=== PATIENT | female | born 1990 | race Caucasian/White ===

== ENCOUNTER 2016-05-01 12:49 | Emergency (ER) | payer OTHER ==
[2016-05-01 13:23] VITALS: BP 127/73
--- NOTE | 2016-05-01 14:18 | ERNOTE ---
Abdominal HPI - Narrative Date of Service: 05/01/16 - General Chief Complaint: Abdominal Pain Time Seen by Provider: 05/01/16 14:01 Source: patient Exam Limitations: no limitations - Immun/Allergies/Home Medications Immunizatons: IMMUNIZATION HX Immunizations Up to Date Yes History of Influenza Vaccine No Hx Pneumococcal Vaccination No Allergies/Adverse Reactions: Allergies acetaminophen Adverse Reaction (Intermediate, Verified 05/01/16 13:24) Home Medications: HOME MEDICATIONS #103/Iron Fumarate/FA [ Tablet] 1 each PO DAILY [Last Taken Unknown] - History of Present Illness Narrative: Pt. comes in with c/o suprapubic pain, vaginal bleeding, and vaginal discharge after falling down her stairs last night. Pt. denies any other symptoms or pain at this time. Pt. is 14 weeks and is RH negative. Review of Systems - Review of Systems Constitutional: Present: no symptoms reported. Absent: recent illness, fever, chills, fatigue, malaise EYE: Present: no symptoms reported ENT: Present: no symptoms reported Respiratory: Present: no symptoms reported. Absent: shortness of breath, cough , wheezing Cardiology: Present: no symptoms reported. Absent: chest pain, palpitations, edema Gastrointestinal/Abdominal: Present: abdominal pain. Absent: nausea, vomiting, diarrhea Genitourinary: Present: pain - suprapubic, discharge - blod Musculoskeletal: Present: no symptoms reported. Absent: back pain, joint pain Skin: Present: no symptoms reported Neurological: Present: no symptoms reported. Absent: headache, dizziness/light- headedness, numbness, tingling All Other Systems: All systems neg except as marked - Patient's Past Medical History Patient History - Medical: No pertinent hx Patient History - Cancer: No Hx of Cancer Patient History - Surgical Procedures: No surgical history - Social History Living Situations: spouse Alcohol Use: none Drug Use: none Physical Exam - Physical Exam General Appearance: Present: wd/wn, alert, no apparent distress Eye Exam: Normal inspection: bilateral, PERRL: bilateral, EOMI: bilateral Respiratory: Present: no respiratory distress, normal breath sounds, no accessory muscle use, chest nontender, lungs clear Cardiovascular/Chest: Present: regular rate, rhythm, no murmur, normal peripheral pulses Gastrointestinal/Abdominal: Present: normal bowel sounds, nontender, nondistended, soft, no organomegaly Back Exam: Present: normal inspection, normal range of motion, no CVA tenderness , no vertebral tenderness Extremity Exam: Present: normal inspection, non-tender, no edema, normal range of motion Neurological Exam: Present: alert, oriented, normal mood/affect, no motor/ sensory deficits, 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 Absent: pallor, skin rash Pelvic Exam: Present: active bleeding - spotting with pink drainage ED Progress - Date and Time Seen: Date and Time: 05/01/16 15:[address] Elizabeth and will send pt. home with abruptio precautions. 05/01/16 15:39 Pt. not in room when I went to speak with her. Pt. did not get rhogam. If pt. shows back up she will need rhogam injection and to receive her instructions. - Results and Orders Patient's Lab Results:: I have reviewed the patient's lab results. - Vital Signs Patient's Vital Signs:: I have reviewed the patient's vital signs. Vital Signs: Vital Signs 05/01/16 13:19 Temperature 35.4 C L Pulse Rate 77 Respiratory 18 Rate Blood Pressure 127/73 O2 Sat by Pulse 100 Oximetry - CT/Ultrasound CT/Ultrasound Narrative: US negative for any abruption or previa. Viable active fetus HR 161 - Progress/Reassessment Chief Complaint: Abdominal Pain Departure - Departure Clinical Impression: Traumatic injury during in second trimester Disposition: Home self-care Condition: Good Instructions: Pelvic Rest, Vaginal Bleeding During , First Trimester, [id number], Placental Abruption Additional Instructions: Please no strenuous activity,or lifting anything for a week. No sexual activity for a week, please follow up with Dr Elizabeth in 2-3 days. Referrals: Jose Tang DO [Primary Care Provider] -
[2016-05-01 14:28] LABS: Hematocrit 40.5 % (37.0-47.0); Hemoglobin 13.5 gm/dL (12.5-16.0); Mean Cell Volume 91.6 fl (78-100); Mean Corpuscular Hemoglobin 30.5 pg (27-31); Mean Corpuscular Hgb Conc 33.3 g/dl (32-36); Mean Platelet Volume 10.7 fl (6.0-9.5); Neutrophil # 6.2 K/mm3 (1.3-6.0); Neutrophil % 72.2 % (42-75.0); Platelet Count 235 K/mm3 (150-450); Red Blood Count 4.42 M/mm3 (4.2-5.4); Red Cell Distribution Width 13.3 % (11.5-14.0); White Blood Count 8.5 K/mm3 (4.0-10.5)
[2016-05-01] MEDS ORDERED: RHO(D) IMMUNE GLOBULIN 300 MCG DISP.SYRIN IM ONE (14:30)
[2016-05-01 14:42] LABS: Albumin * 3.1 gm/dl (3.4-5.0); Anion Gap 12.9 mmol/L (6.8-13.8); BUN/Creatinine Ratio 10.9 (9.0-21.6); Bilirubin, Total 0.2 mg/dL (0.0-1.1); Ca. Corrected For Albumin 9.4 mg/dL (8.4-10.2); Carbon Dioxide 24.3 mmol/L (24-32.6); Potassium 4.2 mmol/L (3.4-4.6); Total Protein 6.9 gm/dL (6.2-8.2)
== END 2016-05-01 15:40 | disposition home or self-care (01) ==
LOC: ER 12:49
DX: O9A.212 Injury, poisoning and certain other consequences of external causes complicating pregnancy, second trimester (principal); Z3A.14 14 weeks gestation of pregnancy; W10.9XXA Fall (on) (from) unspecified stairs and steps, initial encounter